=== PATIENT | male | born 1975 | race Caucasian/White ===

== ENCOUNTER 2020-11-26 15:38 | Outpatient (CLI) | payer BC ==
[2020-11-26 16:48] LABS: #Basophils 0.1 10x3/uL (0.0-0.2); #Eosinphils 0.2 10x3/uL (0.0-0.5); %Eosinophils 1.3 % (0.0-6.0); %Lymphocytes 20.5 % (18.0-47.0); %Monocytes 8.3 % (0.0-10.0); %Neutrophils 68.6 % (40.0-75.0); Hemoglobin 14.6 g/dL (13.5-17.5); Mean Corpuscular HGB CONC 33.1 g/dL (32.0-36.0); Mean Corpuscular Hemoglobin 26.7 pg (27.0-33.0); Mean Corpuscular Volume 80.6 fl (81.2-95.1); Mean Platelet Volume 10.2 fl (7.4-10.4); Platelet Count 378 10x3/uL (150-450); Red Blood Cell (RBC) Count 5.47 10x6/uL (4.32-5.72); White Blood Cell (WBC) Count 11.7 10x3/uL (3.5-10.5)
[2020-11-27 11:14] LABS: SARS-CoV-2 PCR by NAA Not Detected (NotDetected)
== END 2020-11-26 15:39 | disposition home or self-care (01) ==
LOC: LABBT 15:38
PROVIDERS: ATTEND Orthopaedic Surgery
DX: Z01.812 Encounter for preprocedural laboratory examination (principal); S43.431A Superior glenoid labrum lesion of right shoulder, initial encounter; Z98.890 Other specified postprocedural states; Z20.822 Contact with and (suspected) exposure to COVID-19
CPT/HCPCS: 85025; U0003; U0005

== ENCOUNTER 2020-11-29 07:54 | Day surgery (SDC) | payer OTHER ==
[2020-11-28 13:22] VITALS: BMI 28.6
[2020-11-29] MEDS ORDERED: Fentanyl 100 MCG/2 ML VIAL ONE ×2 (08:25→10:15)
[2020-11-29] MEDS ORDERED: Midazolam HCl 2 mg/2 ml Vial ONE (08:25)
[2020-11-29] MEDS ORDERED: Zolpidem Tartrate 5 MG TAB PO PRN (09:30)
[2020-11-29] MEDS ORDERED: Ondansetron PF 4 MG/2 ML Vial IVP PRN (09:30)
[2020-11-29] MEDS ORDERED: Promethazine HCl 25 MG/ML VIAL IM PRN (09:30)
[2020-11-29] MEDS ORDERED: HYDROcodone/Acetaminophen 10/325 mg Tablet PO PRN ×2 (09:30)
[2020-11-29] MEDS ORDERED: Ropivacaine 0.2% 550 ML 550 ML NERVE BLCK SCH (09:30)
[2020-11-29] MEDS ORDERED: Fentanyl 100 MCG/2 ML VIAL SLOW IVP PRN (09:30)
[2020-11-29] MEDS ORDERED: traMADol HCl 50 MG TAB PO PRN ×2 (09:30)
[2020-11-29] MEDS ORDERED: Bupivacaine 0.25% HCL 30 ML VIAL ONE (10:56)
[2020-11-29] MEDS ORDERED: EPINEPHrine 1 MG/ML AMP ONE (10:56)
[2020-11-29] MEDS ORDERED: SUGAMMADEX SODIUM 200 MG/2 ML VIAL ONE (11:40)
[2020-11-29] MEDS ORDERED: Ketorolac Tromethamine 30 MG/ML VIAL IVP SCH (12:00)
== END 2020-11-29 15:25 | disposition home or self-care (01) ==
LOC: SDC 07:54
PROVIDERS: ATTEND Orthopaedic Surgery
PROC: 0RBJ4ZZ Excision of Right Shoulder Joint, Percutaneous Endoscopic Approach (ICD-10-PCS; principal; 2020-11-29)
PROC: 0LS34ZZ Reposition Right Upper Arm Tendon, Percutaneous Endoscopic Approach (ICD-10-PCS; principal; 2020-11-29)
PROC: 3E0T3BZ Introduction of Anesthetic Agent into Peripheral Nerves and Plexi, Percutaneous Approach (ICD-10-PCS; principal; 2020-11-29)
DX: S43.431A Superior glenoid labrum lesion of right shoulder, initial encounter (principal); M65.811 Other synovitis and tenosynovitis, right shoulder; M71.9 Bursopathy, unspecified; G89.18 Other acute postprocedural pain; G47.33 Obstructive sleep apnea (adult) (pediatric)
CPT/HCPCS: A4306; C1713; J0171; J0690; J2250; J2795; J3010; S0020